=== PATIENT | female | born 1995 | race Caucasian/White ===

== ENCOUNTER 2017-03-26 06:35 | Emergency (ER) | payer OTHER ==
[~2017-03-26] VITALS: Ht 162.6 cm; Wt 99.8 kg
[~2017-03-26 06:35] MED LIST: ALBU0.0912 IH
[2017-03-26 06:59] VITALS: BP 107/74
--- NOTE | 2017-03-26 07:05 | NUR ---
TO ER BED 7
--- NOTE | 2017-03-26 07:15 | NUR ---
PATIENT PRESENTS TO ED WITH ABD PAIN, N/V AND DIARRHEA STARTED 0600HOURS . PT STATES PAIN IS CRAMPING ALL OVER ATHE ABDOMEN .SKIN IS PINK/WARM/DRY; AAOX4 WITH EVEN AND STEADY GAIT; LUNGS CLEAR BL; HR EVEN AND REGULAR; PT DENIES ANY FEVER, CP, SOB, OR COUGH AT THIS TIME; PATIENT STATES PAIN OF 10/10 AT THIS TIME;PATIENT POSITIONED FOR COMFORT; HOB ELEVATED; BEDRAILS UP X2; BED DOWN. ER MD WILL BE NOTIFIED.
--- NOTE | 2017-03-26 07:54 | NUR ---
GINO CANTU AT BEDSIDE.
[2017-03-26] MEDS ORDERED: HYDROmorphone 1 MG/ML AMP IVP ONE (08:05)
[2017-03-26] MEDS ORDERED: NACL 0.9% 1,000 ML IV ONE (08:05)
[2017-03-26] MEDS ORDERED: ONDANSETRON 4 MG/2 ML VIAL IVP ONE (08:05)
[2017-03-26 08:30] LABS: BASOPHILS # (AUTO) 0.2 K/uL (0.00-0.22); BASOPHILS % (AUTO) 2.1 % (0.0-2.0); EOSINOPHILS # (AUTO) 0.2 K/uL (0-0.4); EOSINOPHILS % (AUTO) 2.5 % (0.0-4.0); HEMATOCRIT 39.8 % (36-48); HEMOGLOBIN 12.9 g/dL (12.0-16.0); LYMPHOCYTES # (AUTO) 1.5 K/uL (2.5-16.5); LYMPHOCYTES % (AUTO) 15.8 % (20.5-51.1); MEAN CORPUSCULAR HEMOGLOBIN 26 pg (27-31); MEAN CORPUSCULAR HGB CONC 33 g/dL (33-37); MEAN CORPUSCULAR VOLUME 79 fL (80-94); MONOCYTES # (AUTO) 0.4 K/uL (0.8-1.0); MONOCYTES % (AUTO) 4.1 % (1.7-9.3); NEUTROPHILS # (AUTO) 7.3 K/uL (1.8-7.7); NEUTROPHILS % (AUTO) 75.5 % (42.2-75.2); PLATELET COUNT (AUTO) 251 K/uL (140-450); RED BLOOD CELL COUNT(AUTO) 5.05 MIL/uL (4.20-5.40); RED CELL DISTRIBUTION WIDTH 14.3 % (11.6-13.7); WHITE BLOOD COUNT (AUTO) 9.6 K/uL (4.8-10.8)
--- NOTE | 2017-03-26 08:35 | NUR ---
PT STATES SHE FEELS DIZZY;PROVIDED SAFETY MEASURES;COMFORT MEAUSRES DONE;
[2017-03-26 08:55] LABS: BILIRUBIN,URINE NEGATIVE (NEGATIVE); COLOR,URINE YELLOW (YELLOW); LEUKOCYTE ESTERASE ,URINE NEGATIVE (NEGATIVE); NITRITE, URINE NEGATIVE (NEGATIVE); PH,URINE 5.5 (5.0-9.0); PROTEIN,URINE 1+ (NEGATIVE); UGLUCOSE NEGATIVE (NEGATIVE); UROBILINOGEN,URINE 0.2 EU/dL (0.2 - 1)
[2017-03-26 08:59] LABS: ANION GAP 12.2 (8-16); CALCIUM 8.4 mg/dL (8.5-10.1); CARBON DIOXIDE 27.5 mmol/L (21-32); CREATININE 0.8 mg/dL (0.6-1.3); POTASSIUM 3.7 mmol/L (3.5-5.1)
--- NOTE | 2017-03-26 08:59 | NUR ---
PT VERBALIZES DECREASE OF PAIN FROM 9/10 TO 0/10.NO MOANING/RUBBING OF ABDOMEN NOTED;NO ACUTE DISTRESS NOTED;WILL CONTINUE TO MONITOR PT.
[2017-03-26 09:05] LABS: ALBUMIN 3.5 g/dL (3.4-5.0); TOTAL BILIRUBIN 0.2 mg/dL (0.0-1.0); TOTAL PROTEIN, SERUM 7.9 g/dL (6.4-8.2)
[2017-03-26 09:10] LABS: BACTERIA,URINE OCCASSIONAL /HPF (None Seen); WBC,URINE 0-2 /HPF (0-5)
[2017-03-26 09:11] LABS: MUCUS,URINE 1+ /LPF (None Seen); SQUAMOUS EPITHELIAL CELL,UR 0-3 (FEW) /LPF (0-3 (FEW))
[2017-03-26 09:12] LABS: APPEARANCE,URINE SLIGHTLY HAZY (CLEAR)
[2017-03-26 09:14] LABS: BLOOD, URINE 1+ (NEGATIVE)
--- NOTE | 2017-03-26 09:39 | NUR ---
PT RESTING ON BED; AT BEDSIDE;NO ACUTE DISTRESS OTED;WILL CONTINUE TO MONITOR PT.
--- NOTE | 2017-03-26 11:12 | NUR ---
PT RESTING ON BED;TALKING W/ HER ;NO ACUTE DISTRESS NOTED;ALL MONITORS IN PLACED;WILL CONTINUE TO MONITOR PT.
[2017-03-26 11:49] VITALS: BP 108/67
--- NOTE | 2017-03-26 11:49 | NUR ---
Patient discharged with v/s stable. Written and verbal after care instructions given and explained. Patient alert, oriented and verbalized understanding of instructions. with steady gait. All questions addressed prior to discharge. ID band removed. Patient advised to follow up with PMD. Rx of ZOFRAN given. Patient educated on indication of medication including possible reaction and side effects. Opportunity to ask questions provided and answered.
== END 2017-03-26 11:49 | disposition home or self-care (01) ==
LOC: MED 06:35
DX: B34.9 Viral infection, unspecified (principal); F17.210 Nicotine dependence, cigarettes, uncomplicated
CPT/HCPCS: 36415; 80053; 81001; 85025; 96361; 96374; 96375; 99284; J1170; J2405; J7030

== ENCOUNTER 2017-05-13 00:45 | Emergency (ER) | payer OTHER ==
[~2017-05-13] VITALS: Ht 165.1 cm; Wt 99.8 kg
[2017-05-13 01:01] VITALS: BP 103/58
--- NOTE | 2017-05-13 01:18 | NUR ---
TO ER BED 5
--- NOTE | 2017-05-13 01:20 | NUR ---
22Y/F PATIENT PRESENTS TO ED WITH C/O DIZZINESS X 1 DAY . PT STATES DIZZINESS WITH FEELING NOXIOUS. DENIES N/V/D; SKIN IS PINK/WARM/DRY; AAOX4 WITH EVEN AND STEADY GAIT; LUNGS CLEAR BL; HR EVEN AND REGULAR; PT DENIES ANY FEVER, CP, SOB, OR COUGH AT THIS TIME; PATIENT STATES PAIN OF 6/10 AT THIS TIME; VSS; PATIENT POSITIONED FOR COMFORT; HOB ELEVATED; BEDRAILS UP X2; BED DOWN. ER MD MADE AWARE OF PT STATUS.
[2017-05-13] MEDS ORDERED: LORazepam 1 MG TAB PO ONE (01:45)
[2017-05-13] MEDS ORDERED: KETOROLAC 60 MG/2 ML VIAL IM ONE (01:50)
[2017-05-13 02:43] VITALS: BP 126/80
--- NOTE | 2017-05-13 02:43 | NUR ---
Patient discharged with v/s stable. Written and verbal after care instructions given and explained. Patient alert, oriented and verbalized understanding of instructions. Ambulatory with steady gait. All questions addressed prior to discharge. ID band removed. Patient advised to follow up with PMD. Rx of FIORICET 50/325/40MG given. Patient educated on indication of medication including possible reaction and side effects. Opportunity to ask questions provided and answered.
== END 2017-05-13 02:43 | disposition home or self-care (01) ==
LOC: MED 00:45
DX: G44.209 Tension-type headache, unspecified, not intractable (principal); F41.9 Anxiety disorder, unspecified; J45.909 Unspecified asthma, uncomplicated
CPT/HCPCS: 81002; 81025; 99283; J1885

== ENCOUNTER 2018-03-01 15:59 | Emergency (ER) | payer OTHER ==
[~2018-03-01] VITALS: Ht 165.1 cm; Wt 101.2 kg
[2018-03-01 16:14] VITALS: BP 118/78
--- NOTE | 2018-03-01 16:20 | NUR ---
PT AMBULATED TO BED 1
--- NOTE | 2018-03-01 16:30 | NUR ---
23f bib self with c/o cough fever and sinus pressure x 5 days progressively getting worse. Patient is aox4. gcs=15. Clear speech. RR are even and unlabored. Awaiting er md ortiz. Will continue to monitor.
--- NOTE | 2018-03-01 16:54 | NUR ---
Patient discharged with v/s stable. Written and verbal after care instructions given and explained. Patient alert, oriented and verbalized understanding of instructions. Ambulatory with steady gait. All questions addressed prior to discharge. ID band removed. Patient advised to follow up with PMD. Rx of MOTRIN 800MG AND PROMETHAZINE/DM COUGH SYRUP given. Patient educated on indication of medication including possible reaction and side effects. Opportunity to ask questions provided and answered.
[2018-03-01 16:55] VITALS: BP 121/72
== END 2018-03-01 16:54 | disposition home or self-care (01) ==
LOC: MED 15:59
DX: J32.9 Chronic sinusitis, unspecified (principal); J45.909 Unspecified asthma, uncomplicated
CPT/HCPCS: 99283

== ENCOUNTER 2019-03-14 21:18 | Emergency (ER) | payer OTHER ==
[~2019-03-14] VITALS: Ht 165.1 cm; Wt 102.1 kg
[2019-03-14 21:32] VITALS: BP 136/81
--- NOTE | 2019-03-14 21:40 | NUR ---
PT AMBULATED TO THE RESTROOM AND THEN TO [facility]. PT GAVE U/A SPECIMEN
[2019-03-14 22:43] LABS: BASOPHILS % (AUTO) 0.4 % (0.0-2.0); EOSINOPHILS # (AUTO) 0.2 K/uL (0-0.4); EOSINOPHILS % (AUTO) 1.7 % (0.0-4.0); HEMOGLOBIN 11.5 g/dL (12.0-16.0); LYMPHOCYTES # (AUTO) 1.9 K/uL (2.5-16.5); LYMPHOCYTES % (AUTO) 18.5 % (20.5-51.1); MEAN CORPUSCULAR HEMOGLOBIN 26 pg (27-31); MEAN CORPUSCULAR HGB CONC 32 g/dL (33-37); MEAN CORPUSCULAR VOLUME 79.6 fL (80-94); MONOCYTES # (AUTO) 0.4 K/uL (0.8-1.0); MONOCYTES % (AUTO) 4.1 % (1.7-9.3); NEUTROPHILS # (AUTO) 7.9 K/uL (1.8-7.7); NEUTROPHILS % (AUTO) 75.3 % (42.2-75.2); PLATELET COUNT (AUTO) 259 K/uL (140-450); RED BLOOD CELL COUNT(AUTO) 4.52 MIL/uL (4.20-5.40); RED CELL DISTRIBUTION WIDTH 15.4 % (11.6-13.7); WHITE BLOOD COUNT (AUTO) 10.5 K/uL (4.8-10.8)
[2019-03-14 23:04] LABS: CARBON DIOXIDE 28.9 mmol/L (21-32); CREATININE 0.8 mg/dL (0.6-1.3); POTASSIUM 3.9 mmol/L (3.5-5.1)
[2019-03-14 23:10] LABS: ALBUMIN 3.8 g/dL (3.4-5.0); TOTAL BILIRUBIN 0.2 mg/dL (0.0-1.0)
--- NOTE | 2019-03-14 23:28 | NUR ---
PT TAKEN TO BED 8.
[2019-03-15 01:30] VITALS: BP 125/76
--- NOTE | 2019-03-15 01:30 | NUR ---
Patient discharged with v/s stable. Written and verbal after care instructions given and explained. Patient alert, oriented and verbalized understanding of instructions. Ambulatory with steady gait. All questions addressed prior to discharge. ID band removed. Patient advised to follow up with PMD. Rx of ZOFRAN AND MOTRIN WAS given. Patient educated on indication of medication including possible reaction and side effects. Opportunity to ask questions provided and answered.
== END 2019-03-15 01:30 | disposition home or self-care (01) ==
LOC: MED 21:18
DX: R10.13 Epigastric pain (principal); R11.0 Nausea; R19.7 Diarrhea, unspecified; J45.909 Unspecified asthma, uncomplicated; Z79.899 Other long term (current) drug therapy
CPT/HCPCS: 36415; 80053; 81002; 81025; 83690; 85025; 99283

== ENCOUNTER 2019-12-09 11:02 | Emergency (ER) | payer OTHER ==
[~2019-12-09] VITALS: Ht 165.1 cm; Wt 99.8 kg
[2019-12-09 11:12] VITALS: BP 121/58
--- NOTE | 2019-12-09 11:18 | NUR ---
24 Y/O F C/C COUGH X1 MONTH. PER PT TAKEN OTC RX FOR COUGH WITH NO RELIEF. PT PAIN 7/10 WHEN COUGHING; NO PAIN WHEN NOT COUGHING. LUNG SOUNDS CLEAR. PT NKA. HX ASTHMA. RX ALBUTEROL PRN. NO N/V/D. FLU SHOT UP TO DATE/NO FAMILY SICK AT HOME. SIDE RAIL X1.
--- NOTE | 2019-12-09 13:32 | NUR ---
PT RESTING IN BED , SIDE RAIL X1.
[2019-12-09 13:37] VITALS: BP 120/62
--- NOTE | 2019-12-09 13:37 | NUR ---
Patient discharged with v/s stable. Written and verbal after care instructions given and explained. Patient alert, oriented and verbalized understanding of instructions. Ambulatory with steady gait. All questions addressed prior to discharge. ID band removed. Patient advised to follow up with PMD. Rx of CODEINE PHOSPHATE/PROMETHAZINE,ALBUTEROL,PREDNISONE given. Patient educated on indication of medication including possible reaction and side effects. Opportunity to ask questions provided and answered.
== END 2019-12-09 13:37 | disposition home or self-care (01) ==
LOC: MED 11:02
DX: R05 Cough (principal); R50.9 Fever, unspecified; J45.909 Unspecified asthma, uncomplicated; Z79.899 Other long term (current) drug therapy
CPT/HCPCS: 71045; 99283; Q0092

== ENCOUNTER 2021-07-04 01:14 | Emergency (ER) | payer OTHER ==
[~2021-07-04] VITALS: Ht 162.6 cm; Wt 105.2 kg
[2021-07-04 01:30] VITALS: BP 138/78
--- NOTE | 2021-07-04 01:37 | NUR ---
PT AMBULATED TO LOBBY TO A/W BED
[2021-07-04] MEDS ORDERED: ONDANSETRON 4 MG ODT PO ONE (02:00)
[2021-07-04] MEDS ORDERED: DICYCLOMINE HCL LIQUID 20 MG, ALUMINUM HYD/MAG/SIMETHICONE 30 ML, LIDOCAINE VISCOUS 2% ... PO ONE ×3 (02:00)
[2021-07-04] MEDS ORDERED: ACETAMINOPHEN 325 MG TAB PO ONE (02:00)
[2021-07-04 02:19] LABS: BASOPHILS % (AUTO) 0.2 % (0.0-2.0); EOSINOPHILS # (AUTO) 0.3 K/uL (0-0.4); EOSINOPHILS % (AUTO) 2.3 % (0.0-4.0); HEMATOCRIT 34.3 % (36-48); LYMPHOCYTES # (AUTO) 1.5 K/uL (2.5-16.5); LYMPHOCYTES % (AUTO) 12.9 % (20.5-51.1); MEAN CORPUSCULAR HEMOGLOBIN 26 pg (27-31); MEAN CORPUSCULAR HGB CONC 32 g/dL (33-37); MEAN CORPUSCULAR VOLUME 80.8 fL (80-94); MONOCYTES # (AUTO) 0.6 K/uL (0.8-1.0); MONOCYTES % (AUTO) 4.9 % (1.7-9.3); NEUTROPHILS # (AUTO) 9.5 K/uL (1.8-7.7); NEUTROPHILS % (AUTO) 79.7 % (42.2-75.2); PLATELET COUNT (AUTO) 274 K/uL (140-450); RED BLOOD CELL COUNT(AUTO) 4.25 MIL/uL (4.20-5.40); RED CELL DISTRIBUTION WIDTH 15.2 % (11.6-13.7); WHITE BLOOD COUNT (AUTO) 11.9 K/uL (4.8-10.8)
[2021-07-04 02:39] LABS: ALBUMIN 3.8 g/dL (3.4-5.0); ANION GAP 11.7 (8-16); CARBON DIOXIDE 26.9 mmol/L (21-32); CREATININE 0.9 mg/dL (0.6-1.3); POTASSIUM 3.6 mmol/L (3.5-5.1); TOTAL BILIRUBIN 0.3 mg/dL (0.0-1.0)
[2021-07-04] MEDS ORDERED: ALUMINUM HYD/MAG/SIMETHICONE 30 ML UDC ONE (02:53)
[2021-07-04] MEDS ORDERED: DICYCLOMINE HCL LIQUID 10 MG/5 ML UDC ONE (02:53)
[2021-07-04] MEDS ORDERED: ONDA-24 SL (03:57)
[2021-07-04] MEDS ORDERED: MAG-27 PO (03:57)
[2021-07-04] MEDS ORDERED: FAMO-92 PO (03:57)
--- NOTE | 2021-07-04 04:16 | NUR ---
Patient discharged with v/s stable. Written and verbal after care instructions given and explained. Patient alert, oriented and verbalized understanding of instructions. Ambulatory with steady gait. All questions addressed prior to discharge. ID band removed. Patient advised to follow up with PMD. Rx of PEPCID, ZOFRAN, AND [place]A given. Patient educated on indication of medication including possible reaction and side effects. Opportunity to ask questions provided and answered.
== END 2021-07-04 04:16 | disposition home or self-care (01) ==
LOC: MED 01:14
DX: K29.70 Gastritis, unspecified, without bleeding (principal); J45.909 Unspecified asthma, uncomplicated; Z79.899 Other long term (current) drug therapy
CPT/HCPCS: 36415; 80053; 83690; 85025; 99284; Q0162

== ENCOUNTER 2021-07-15 13:40 | Emergency (ER) | payer OTHER ==
[~2021-07-15] VITALS: Ht 165.1 cm; Wt 103.0 kg
[~2021-07-15 13:40] MED LIST changes: +FAMO-92 PO; +MAG-27 PO; +ONDA-24 SL
[2021-07-15 14:12] VITALS: BP 137/82
[2021-07-15 15:18] LABS: BASOPHILS % (AUTO) 0.5 % (0.0-2.0); EOSINOPHILS # (AUTO) 0.3 K/uL (0-0.4); EOSINOPHILS % (AUTO) 3.6 % (0.0-4.0); HEMATOCRIT 35.5 % (36-48); HEMOGLOBIN 11.4 g/dL (12.0-16.0); LYMPHOCYTES % (AUTO) 23.5 % (20.5-51.1); MEAN CORPUSCULAR HEMOGLOBIN 26 pg (27-31); MEAN CORPUSCULAR HGB CONC 32 g/dL (33-37); MEAN CORPUSCULAR VOLUME 81.7 fL (80-94); MONOCYTES # (AUTO) 0.4 K/uL (0.8-1.0); MONOCYTES % (AUTO) 4.4 % (1.7-9.3); NEUTROPHILS # (AUTO) 5.7 K/uL (1.8-7.7); PLATELET COUNT (AUTO) 255 K/uL (140-450); RED BLOOD CELL COUNT(AUTO) 4.34 MIL/uL (4.20-5.40); RED CELL DISTRIBUTION WIDTH 14.9 % (11.6-13.7); WHITE BLOOD COUNT (AUTO) 8.3 K/uL (4.8-10.8)
[2021-07-15 15:53] LABS: ALBUMIN 3.8 g/dL (3.4-5.0); ANION GAP 9.7 (8-16); CARBON DIOXIDE 31.3 mmol/L (21-32); CREATININE 0.8 mg/dL (0.6-1.3); TOTAL BILIRUBIN 0.2 mg/dL (0.0-1.0)
[2021-07-15] MEDS ORDERED: CETI10SG1 PO (16:35)
[2021-07-15 16:45] VITALS: BP 137/82
--- NOTE | 2021-07-15 16:45 | NUR ---
Patient discharged with v/s stable. Written and verbal after care instructions given and explained. Patient alert, oriented and verbalized understanding of instructions. Ambulatory with steady gait. All questions addressed prior to discharge. ID band removed. Patient advised to follow up with PMD. Rx of CETIRIZINE given. Patient educated on indication of medication including possible reaction and side effects. Opportunity to ask questions provided and answered.
--- NOTE | 2021-07-15 16:45 | NUR ---
NO NURSING INTERVENTIONS IMPLEMENTED
== END 2021-07-15 16:45 | disposition home or self-care (01) ==
LOC: MED 13:40
DX: T78.40XA Allergy, unspecified, initial encounter (principal); J45.909 Unspecified asthma, uncomplicated; Z79.899 Other long term (current) drug therapy; X58.XXXA Exposure to other specified factors, initial encounter
CPT/HCPCS: 36415; 80053; 81002; 81025; 85025; 99283

== ENCOUNTER 2021-08-29 19:07 | Emergency (ER) | payer OTHER ==
[~2021-08-29] VITALS: Ht 162.6 cm; Wt 103.4 kg
[~2021-08-29 19:07] MED LIST changes: +CETI10SG1 PO; +ONDA-188 SL; -ONDA-24 SL
[2021-08-29 19:21] VITALS: BP 119/76
[2021-08-29] MEDS ORDERED: CYCLOBENZAPRINE 10 MG TAB PO ONE (20:15)
[2021-08-29] MEDS ORDERED: KETOROLAC 30 MG/ML VIAL IM ONE (20:15)
[2021-08-29] MEDS ORDERED: IBUP-2218 PO (21:01)
[2021-08-29] MEDS ORDERED: CYCL-711 PO (21:01)
--- NOTE | 2021-08-29 21:30 | NUR ---
SEE COMPLETE ASSESSMENT FOR FURTHER DETAIL.
[2021-08-29] MEDS ORDERED: KETOROLAC 30 MG/ML VIAL ONE (21:32)
[2021-08-29] MEDS ORDERED: CYCLOBENZAPRINE 10 MG TAB ONE (21:32)
--- NOTE | 2021-08-29 21:40 | NUR ---
Patient discharged with v/s stable. Written and verbal after care instructions given and explained. Patient alert, oriented and verbalized understanding of instructions. Ambulatory with steady gait. All questions addressed prior to discharge. ID band removed. Patient advised to follow up with PMD. Rx of FLEXERIL AND MOTRIN given. Patient educated on indication of medication including possible reaction and side effects. Opportunity to ask questions provided and answered.
== END 2021-08-29 21:40 | disposition home or self-care (01) ==
LOC: MED 19:07
DX: M54.6 Pain in thoracic spine (principal); M79.18 Myalgia, other site; J45.909 Unspecified asthma, uncomplicated; Z79.899 Other long term (current) drug therapy; Z79.51 Long term (current) use of inhaled steroids
CPT/HCPCS: 71045; 99283; J1885

== ENCOUNTER 2021-10-03 07:40 | Emergency (ER) | payer OTHER ==
[~2021-10-03] VITALS: Ht 165.1 cm; Wt 99.8 kg
[~2021-10-03 07:40] MED LIST changes: +CYCL-711 PO; +IBUP-2218 PO
[2021-10-03 07:48] VITALS: BP 136/84
--- NOTE | 2021-10-03 07:55 | NUR ---
AMBULATED TO ER BED 7
--- NOTE | 2021-10-03 08:07 | NUR ---
26 Y/O F C/O LOWER/MID BACK PAIN 04/30, FREQUENT URINATION ADN CHILLS STARTED YESTERDAY. DENIES INJURY OR TRAUMA. BACK PAIN RADIATES TO HER L MID SIDE. NKA PMH: LUPUS
--- NOTE | 2021-10-03 08:11 | NUR ---
URINE COLLECTED AND TAKEN TO THE LAB.
[2021-10-03 08:32] LABS: APPEARANCE,URINE CLEAR (CLEAR); BILIRUBIN,URINE NEGATIVE (NEGATIVE); BLOOD, URINE NEGATIVE (NEGATIVE); COLOR,URINE YELLOW (YELLOW); LEUKOCYTE ESTERASE ,URINE NEGATIVE (NEGATIVE); NITRITE, URINE NEGATIVE (NEGATIVE); UGLUCOSE NEGATIVE (NEGATIVE)
[2021-10-03] MEDS ORDERED: IBUP-2809 PO (08:55)
[2021-10-03] MEDS ORDERED: LID5T TP (08:55)
--- NOTE | 2021-10-03 09:09 | NUR ---
Patient discharged with v/s stable. Written and verbal after care instructions given and explained. Patient alert, oriented and verbalized understanding of instructions. Ambulatory with steady gait. All questions addressed prior to discharge. ID band removed. Patient advised to follow up with PMD. Rx of IBUPROFEN, LIDOCAINE HYD given. Opportunity to ask questions provided and answered.
--- NOTE | 2021-10-03 09:11 | NUR ---
Chart checked and completed. The patient's care was reviewed and supervised by Sierra Ham RN.
== END 2021-10-03 09:08 | disposition home or self-care (01) ==
LOC: MED 07:40
DX: M54.50 Low back pain, unspecified (principal); R35.0 Frequency of micturition; J45.909 Unspecified asthma, uncomplicated; Z79.899 Other long term (current) drug therapy
CPT/HCPCS: 81003; 81025; 99283

== ENCOUNTER 2022-02-24 11:08 | Emergency (ER) | payer OTHER ==
[~2022-02-24] VITALS: Ht 162.6 cm; Wt 96.7 kg
[~2022-02-24 11:08] MED LIST changes: +IBUP-2809 PO; +LID5T TP
[2022-02-24 11:11] VITALS: BP 113/68
[2022-02-24] MEDS ORDERED: NACL 0.9% 1,000 ML IV ONE (11:30)
[2022-02-24] MEDS ORDERED: ONDANSETRON 4 MG/2 ML VIAL ONE (11:30)
[2022-02-24] MEDS ORDERED: ONDANSETRON 4 MG/2 ML VIAL IVP ONE (11:30)
--- NOTE | 2022-02-24 11:39 | NUR ---
bloodwork collected and walked to lab
--- NOTE | 2022-02-24 11:40 | NUR ---
US AT PT BEDSIDE
[2022-02-24 11:46] LABS: BASOPHILS % (AUTO) 0.5 % (0.0-2.0); EOSINOPHILS # (AUTO) 0.3 K/uL (0-0.4); EOSINOPHILS % (AUTO) 4.1 % (0.0-4.0); HEMATOCRIT 34.7 % (36-48); HEMOGLOBIN 11.2 g/dL (12.0-16.0); LYMPHOCYTES # (AUTO) 1.2 K/uL (2.5-16.5); LYMPHOCYTES % (AUTO) 15.5 % (20.5-51.1); MEAN CORPUSCULAR HEMOGLOBIN 26 pg (27-31); MEAN CORPUSCULAR HGB CONC 32 g/dL (33-37); MEAN CORPUSCULAR VOLUME 81.6 fL (80-94); MONOCYTES # (AUTO) 0.4 K/uL (0.8-1.0); MONOCYTES % (AUTO) 5.9 % (1.7-9.3); NEUTROPHILS # (AUTO) 5.5 K/uL (1.8-7.7); PLATELET COUNT (AUTO) 232 K/uL (140-450); RED BLOOD CELL COUNT(AUTO) 4.25 MIL/uL (4.20-5.40); RED CELL DISTRIBUTION WIDTH 15.9 % (11.6-13.7); WHITE BLOOD COUNT (AUTO) 7.5 K/uL (4.8-10.8)
[2022-02-24 12:29] LABS: ALBUMIN 3.5 g/dL (3.4-5.0); ANION GAP 10.9 (8-16); CARBON DIOXIDE 27.4 mmol/L (21-32); CREATININE 0.7 mg/dL (0.6-1.3); POTASSIUM 4.3 mmol/L (3.5-5.1); TOTAL BILIRUBIN 0.6 mg/dL (0.0-1.0)
[2022-02-24] MEDS ORDERED: DOXY1TCP PO (12:46)
--- NOTE | 2022-02-24 13:58 | NUR ---
Patient discharged with v/s stable. Written and verbal after care instructions given. Patient alert, oriented and verbalized understanding of instructions. Ambulatory with to car. All questions addressed prior to discharge. ID band removed. Patient advised to follow up with PMD. Rx of DOXYLAMINE/PYRIDOXINE given. Opportunity to ask questions provided and answered.
--- NOTE | 2022-02-24 13:59 | NUR ---
The patient's care was reviewed and supervised by Jackie Campos RN.
[2022-02-24 15:42] LABS: APPEARANCE,URINE CLEAR (CLEAR); BILIRUBIN,URINE NEGATIVE (NEGATIVE); BLOOD, URINE NEGATIVE (NEGATIVE); COLOR,URINE YELLOW (YELLOW); LEUKOCYTE ESTERASE ,URINE NEGATIVE (NEGATIVE); NITRITE, URINE NEGATIVE (NEGATIVE); PH,URINE 6.5 (5.0-9.0); UGLUCOSE NEGATIVE (NEGATIVE)
== END 2022-02-24 13:58 | disposition home or self-care (01) ==
LOC: MED 11:08
DX: O21.0 Mild hyperemesis gravidarum (principal); O26.891 Other specified pregnancy related conditions, first trimester; R10.9 Unspecified abdominal pain; R42 Dizziness and giddiness; Z3A.01 Less than 8 weeks gestation of pregnancy; Z79.899 Other long term (current) drug therapy
CPT/HCPCS: 36415; 76817; 80053; 81003; 81025; 84702; 85025; 96361; 96374; 99284; J2405; J7030; Q0092

== ENCOUNTER 2022-07-20 05:45 | Emergency (ER) | payer OTHER ==
[~2022-07-20] VITALS: Ht 162.6 cm; Wt 100.2 kg
[~2022-07-20 05:45] MED LIST changes: +DOXY1TCP PO
[2022-07-20 05:54] VITALS: BP 103/65
--- NOTE | 2022-07-20 05:57 | NUR ---
PT TO LOBBY.
[2022-07-20] MEDS ORDERED: LIDOCAINE 5% 1 EA PATCH TP STA (06:12)
[2022-07-20] MEDS ORDERED: methocarbamoL 500 MG TAB PO STA (06:12)
[2022-07-20] MEDS ORDERED: KETOROLAC 15 MG/ML VIAL IM ONE (06:15)
--- NOTE | 2022-07-20 06:18 | NUR ---
PATIENT AMBULATED TO RR
[2022-07-20 06:21] VITALS: BP 103/65
[2022-07-20] MEDS ORDERED: IBUP-2213 PO (06:28)
[2022-07-20] MEDS ORDERED: LID5T TP (06:28)
--- NOTE | 2022-07-20 06:50 | NUR ---
Patient discharged with v/s stable. Written and verbal after care instructions given and explained. Patient alert, oriented and verbalized understanding of instructions. Ambulatory with steady gait. All questions addressed prior to discharge. ID band removed. Patient advised to follow up with PMD. Rx of IBUPROFEN AND LIDOCAINE PATCH given.
== END 2022-07-20 06:50 | disposition home or self-care (01) ==
LOC: MED 05:45
DX: S29.012A Strain of muscle and tendon of back wall of thorax, initial encounter (principal); J45.909 Unspecified asthma, uncomplicated; Z79.899 Other long term (current) drug therapy; X58.XXXA Exposure to other specified factors, initial encounter; Y93.89 Activity, other specified; Y92.89 Other specified places as the place of occurrence of the external cause; Y99.8 Other external cause status
CPT/HCPCS: 81002; 81025; 96372; 99283; J1885

== ENCOUNTER 2022-10-22 08:50 | Emergency (ER) | payer OTHER ==
[~2022-10-22] VITALS: Ht 165.1 cm; Wt 99.8 kg
[~2022-10-22 08:50] MED LIST changes: +IBUP-2213 PO
[2022-10-22 08:56] VITALS: BP 113/77
[2022-10-22] MEDS ORDERED: diphenhydrAMINE 50 MG/ML VIAL IVP ONE (09:00)
[2022-10-22] MEDS ORDERED: ONDANSETRON 4 MG/2 ML VIAL IVP ONE (09:00)
[2022-10-22] MEDS ORDERED: KETOROLAC 30 MG/ML VIAL IVP ONE (09:00)
[2022-10-22] MEDS ORDERED: NACL 0.9% 1,000 ML IV ONE (09:00)
--- NOTE | 2022-10-22 09:00 | NUR ---
DR IZQUIERDO AT BEDSIDE FOR EVAL
--- NOTE | 2022-10-22 09:30 | NUR ---
27 Y/O FEMALE BIB SELF C/O NVX6 EPISODES AND DIARRHEA X2 EPISODES, CHEST PRESSURE AND EPIGASTRIC PAIN X1DAY. DENIES ANY DRUG/ALCOHOL INTAKE, DENIES ANY MEDICATION PRIOR TO ARRIVAL, DENIES ANY SICK CONTACTS. ACTIVELY VOMITING AT BEDSIDE, GIVEN EMESIS BAG, NO BLOOD NOTED IN VOMITUS, SCANT WITH NO SOLIDS NOTED. DENIES ANY BLOOD IN STOOL. DENIES ANY SOB, COUGH. IN BED ON INSPECTION CLERK. CHANGED INTO A GOWN AND HOB ELEVATED. NKA PMH: ASTHMA, LUPUS
--- NOTE | 2022-10-22 09:38 | NUR ---
Note katey in EDM - 10/22/22 at 0943 by LIGIA Patient discharged with v/s stable. Written and verbal after care instructions given. Patient alert, oriented and verbalized understanding of instructions. Ambulatory with steady gait. All questions addressed prior to discharge. ID band removed. Patient advised to follow up with PMD. Rx of Albuerol, Ibuprofen, Inhaler and Mucinex given. Opportunity to ask questions provided and answered.
[2022-10-22 09:46] LABS: BASOPHILS # (AUTO) 0.1 K/uL (0.00-0.22); BASOPHILS % (AUTO) 0.5 % (0.0-2.0); EOSINOPHILS # (AUTO) 0.1 K/uL (0-0.4); EOSINOPHILS % (AUTO) 0.5 % (0.0-4.0); HEMATOCRIT 35.8 % (36-48); HEMOGLOBIN 11.4 g/dL (12.0-16.0); LYMPHOCYTES # (AUTO) 1.9 K/uL (2.5-16.5); LYMPHOCYTES % (AUTO) 10.9 % (20.5-51.1); MEAN CORPUSCULAR HEMOGLOBIN 25 pg (27-31); MEAN CORPUSCULAR HGB CONC 32 g/dL (33-37); MEAN CORPUSCULAR VOLUME 79.5 fL (80-94); MONOCYTES # (AUTO) 0.6 K/uL (0.8-1.0); MONOCYTES % (AUTO) 3.4 % (1.7-9.3); NEUTROPHILS # (AUTO) 14.7 K/uL (1.8-7.7); NEUTROPHILS % (AUTO) 84.7 % (42.2-75.2); PLATELET COUNT (AUTO) 295 K/uL (140-450); WHITE BLOOD COUNT (AUTO) 17.4 K/uL (4.8-10.8)
[2022-10-22 09:52] LABS: ALBUMIN 3.6 g/dL (3.4-5.0); ANION GAP 13.6 (8-16); CARBON DIOXIDE 24.5 mmol/L (21-32); CREATININE 0.7 mg/dL (0.6-1.3); POTASSIUM 4.1 mmol/L (3.5-5.1); TOTAL BILIRUBIN 0.4 mg/dL (0.0-1.0)
[2022-10-22] MEDS ORDERED: FAMO-92 PO (10:08)
[2022-10-22] MEDS ORDERED: SIME125T38 PO (10:08)
[2022-10-22] MEDS ORDERED: ONDA-188 PO (10:08)
[2022-10-22 11:17] VITALS: BP 118/64
--- NOTE | 2022-10-22 11:18 | NUR ---
Patient discharged with v/s stable. Written and verbal after care instructions ABOUT VIRAL GASTROENETERITIS given and explained. Patient alert, oriented and verbalized understanding of instructions. Ambulatory with steady gait. All questions addressed prior to discharge. ID band removed. Patient advised to follow up with PMD. Rx of ZOFRAN, SIMETHICONE AND PEPCID given. Patient educated on indication of medication including possible reaction and side effects. Opportunity to ask questions provided and answered.
== END 2022-10-22 11:18 | disposition home or self-care (01) ==
LOC: MED 08:50
DX: A08.4 Viral intestinal infection, unspecified (principal); J45.909 Unspecified asthma, uncomplicated
CPT/HCPCS: 36415; 80053; 83690; 85025; 96361; 96374; 96375; 99284; J1200; J1885; J2405

== ENCOUNTER 2023-01-05 08:35 | Emergency (ER) | payer OTHER ==
[~2023-01-05] VITALS: Ht 162.6 cm; Wt 103.4 kg
[~2023-01-05 08:35] MED LIST changes: +ONDA-188 PO; +SIME125T38 PO
[2023-01-05 08:41] VITALS: BP 111/60
--- NOTE | 2023-01-05 09:25 | NUR ---
PT AMB TO BED 11
[2023-01-05] MEDS ORDERED: ONDANSETRON 4 MG ODT PO ONE (09:30)
[2023-01-05] MEDS ORDERED: KETOROLAC 60 MG/2 ML VIAL IM ONE (09:40)
[2023-01-05] MEDS ORDERED: IBUP-2213 PO (09:59)
[2023-01-05] MEDS ORDERED: ONDA8TAB87 PO (09:59)
--- NOTE | 2023-01-05 10:10 | NUR ---
Patient discharged with v/s stable. Written and verbal after care instructions given and explained. Patient alert, oriented and verbalized understanding of instructions. Ambulatory with steady gait. All questions addressed prior to discharge. ID band removed. Patient advised to follow up with PMD. Rx of zofran and ibuprofen given. Patient educated on indication of medication including possible reaction and side effects. Opportunity to ask questions provided and answered.
== END 2023-01-05 10:10 | disposition home or self-care (01) ==
LOC: MED 08:35
DX: R10.13 Epigastric pain (principal); R19.7 Diarrhea, unspecified; R11.0 Nausea; J45.909 Unspecified asthma, uncomplicated; Z79.899 Other long term (current) drug therapy
CPT/HCPCS: 81025; 96372; 99283; J1885; Q0162

== ENCOUNTER 2023-03-28 23:45 | Emergency (ER) | payer OTHER ==
[~2023-03-28] VITALS: Ht 162.6 cm; Wt 102.1 kg
[2023-03-28 23:45] VITALS: BP 127/91
[~2023-03-28 23:45] MED LIST changes: +ONDA8TAB87 PO
--- NOTE | 2023-03-28 23:48 | NUR ---
to lobby a/w bed ambulatory
[2023-03-29 00:35] LABS: APPEARANCE,URINE CLOUDY (CLEAR); BILIRUBIN,URINE 1+ (NEGATIVE); BLOOD, URINE 3+ (NEGATIVE); COLOR,URINE RED (YELLOW); LEUKOCYTE ESTERASE ,URINE NEGATIVE (NEGATIVE); NITRITE, URINE NEGATIVE (NEGATIVE); UGLUCOSE NEGATIVE (NEGATIVE)
[2023-03-29 00:39] LABS: RBC,URINE TOO NUMEROUS TO COUN /HPF (0-5)
[2023-03-29 01:40] LABS: BASOPHILS % (AUTO) 0.4 % (0.0-2.0); EOSINOPHILS # (AUTO) 0.4 K/uL (0-0.4); EOSINOPHILS % (AUTO) 5.7 % (0.0-4.0); HEMATOCRIT 33.1 % (36-48); HEMOGLOBIN 10.7 g/dL (12.0-16.0); LYMPHOCYTES % (AUTO) 25.4 % (20.5-51.1); MEAN CORPUSCULAR HEMOGLOBIN 25 pg (27-31); MEAN CORPUSCULAR HGB CONC 32 g/dL (33-37); MEAN CORPUSCULAR VOLUME 77.9 fL (80-94); MONOCYTES # (AUTO) 0.4 K/uL (0.8-1.0); MONOCYTES % (AUTO) 4.8 % (1.7-9.3); NEUTROPHILS % (AUTO) 63.7 % (42.2-75.2); PLATELET COUNT (AUTO) 266 K/uL (140-450); RED BLOOD CELL COUNT(AUTO) 4.25 MIL/uL (4.20-5.40); RED CELL DISTRIBUTION WIDTH 16.7 % (11.6-13.7); WHITE BLOOD COUNT (AUTO) 7.8 K/uL (4.8-10.8)
--- NOTE | 2023-03-29 01:59 | NUR ---
PT TO BED #3
--- NOTE | 2023-03-29 02:17 | NUR ---
BROUGHT FROM US TO BED 3. RECEIVED PT AT THIS TIME. PT HERE WITH C/O VAGINAL BLEEDING WITH LMP 02/11. AT BEDSIDE
[2023-03-29] MEDS ORDERED: ACETAMINOPHEN EXTRA STRENGTH 500 MG TAB PO ONE (03:00)
[2023-03-29] MEDS ORDERED: HYDROcodone/APAP 5/325 MG 1 TAB TAB ONE (06:03)
[2023-03-29] MEDS ORDERED: HYDROcodone/APAP 5/325 MG 1 TAB TAB PO ONE (06:05)
[2023-03-29] MEDS ORDERED: ACET-8905 PO (06:09)
[2023-03-29 06:20] VITALS: BP 127/91
--- NOTE | 2023-03-29 06:20 | NUR ---
Patient discharged with v/s stable. Written and verbal after care instructions given and explained. Patient alert, oriented and verbalized understanding of instructions. Ambulatory with steady gait. All questions addressed prior to discharge. ID band removed. Patient advised to follow up with PMD. Rx of HYDROCODONE given. Patient educated on indication of medication including possible reaction and side effects. Opportunity to ask questions provided and answered.
== END 2023-03-29 06:20 | disposition home or self-care (01) ==
LOC: MED 23:45
DX: O03.9 Complete or unspecified spontaneous abortion without complication (principal); L93.0 Discoid lupus erythematosus; J45.909 Unspecified asthma, uncomplicated; Z79.899 Other long term (current) drug therapy
CPT/HCPCS: 36415; 76817; 81001; 81025; 84702; 85025; 86900; 86901; 99284

== ENCOUNTER 2023-11-04 19:12 | Emergency (ER) | payer BC, OTHER ==
[~2023-11-04] VITALS: Ht 162.6 cm; Wt 106.8 kg
[~2023-11-04 19:12] MED LIST changes: +ACET-8905 PO
[2023-11-04 19:32] VITALS: BP 121/88; PULSE 127; RESP 24; TEMP 102; O2SAT 98
[2023-11-04] MEDS ORDERED: ACETAMINOPHEN EXTRA STRENGTH 500 MG TAB ONE (19:39)
[2023-11-04] MEDS: ACETAMINOPHEN EXTRA STRENGTH 500 MG TAB PO ONE (20:08)
[2023-11-04 20:22] LABS: FLU A ANTIGEN POSITIVE (NEGATIVE); FLU B ANTIGEN NEGATIVE (NEGATIVE)
[2023-11-04] MEDS: NACL 0.9% 1,000 ML IV ONE (20:48)
[2023-11-04] MEDS: ONDANSETRON 4 MG/2 ML VIAL IVP ONE (20:52)
[2023-11-04] MEDS: KETOROLAC 30 MG/ML VIAL IVP ONE (20:52)
[2023-11-04] MEDS ORDERED: ONDA-188 SL (21:28)
[2023-11-04] MEDS ORDERED: TAM75 PO (21:28)
[2023-11-04] MEDS ORDERED: IBUP-2213 PO (21:28)
[2023-11-04 22:15] VITALS: BP 109/65; PULSE 90; RESP 18; TEMP 99.3; O2SAT 96
== END 2023-11-04 22:47 | disposition home or self-care (01) ==
LOC: MED 19:12
DX: J10.1 Influenza due to other identified influenza virus with other respiratory manifestations (principal); E86.0 Dehydration; Z20.822 Contact with and (suspected) exposure to COVID-19; J45.909 Unspecified asthma, uncomplicated; Z79.899 Other long term (current) drug therapy; Z79.1 Long term (current) use of non-steroidal anti-inflammatories (NSAID)
CPT/HCPCS: 81002; 81025; 96361; 96374; 96375; 99284; J1885; J2405; J7030

== ENCOUNTER 2024-03-17 14:24 | Emergency (ER) | payer BC, OTHER ==
[~2024-03-17] VITALS: Ht 162.6 cm; Wt 102.1 kg
[~2024-03-17 14:24] MED LIST changes: +TAM75 PO
[2024-03-17 14:28] VITALS: PULSE 81; RESP 18; TEMP 97.1; O2SAT 98
[2024-03-17 15:24] LABS: BILIRUBIN,URINE NEGATIVE (NEGATIVE); BLOOD, URINE 3+ (NEGATIVE); COLOR,URINE YELLOW (YELLOW); LEUKOCYTE ESTERASE ,URINE 2+ (NEGATIVE); NITRITE, URINE NEGATIVE (NEGATIVE); PROTEIN,URINE 2+ (NEGATIVE); UGLUCOSE NEGATIVE (NEGATIVE); UROBILINOGEN,URINE 0.2 EU/dL (0.2 - 1)
[2024-03-17 15:29] LABS: APPEARANCE,URINE SLIGHTLY CLOUDY (CLEAR)
[2024-03-17 15:31] LABS: BACTERIA,URINE 2+ /HPF (None Seen); MUCUS,URINE None Seen /LPF (None Seen); RBC,URINE 11-20 (MOD) /HPF (0-5); SQUAMOUS EPITHELIAL CELL,UR 4-10 (MOD) /LPF (0-3 (FEW))
[2024-03-17 15:57] VITALS: O2SAT 98
[2024-03-17 16:59] LABS: BASOPHILS % (AUTO) 0.2 % (0.0-2.0); EOSINOPHILS # (AUTO) 0.4 K/uL (0-0.4); EOSINOPHILS % (AUTO) 4.1 % (0.0-4.0); HEMATOCRIT 30.5 % (36-48); HEMOGLOBIN 10.1 g/dL (12.0-16.0); LYMPHOCYTES # (AUTO) 1.4 K/uL (2.5-16.5); LYMPHOCYTES % (AUTO) 15.1 % (20.5-51.1); MEAN CORPUSCULAR HEMOGLOBIN 25 pg (27-31); MEAN CORPUSCULAR HGB CONC 33 g/dL (33-37); MEAN CORPUSCULAR VOLUME 75.7 fL (80-94); MONOCYTES # (AUTO) 0.4 K/uL (0.8-1.0); MONOCYTES % (AUTO) 4.3 % (1.7-9.3); NEUTROPHILS # (AUTO) 7.2 K/uL (1.8-7.7); NEUTROPHILS % (AUTO) 76.3 % (42.2-75.2); PLATELET COUNT (AUTO) 243 K/uL (140-450); RED BLOOD CELL COUNT(AUTO) 4.04 MIL/uL (4.20-5.40); RED CELL DISTRIBUTION WIDTH 16.4 % (11.6-13.7); WHITE BLOOD COUNT (AUTO) 9.4 K/uL (4.8-10.8)
[2024-03-17 17:13] LABS: ANION GAP 13.2 (8-16); CALCIUM 8.6 mg/dL (8.5-10.1); CARBON DIOXIDE 26.6 mmol/L (21-32); CREATININE 0.8 mg/dL (0.6-1.3); POTASSIUM 3.8 mmol/L (3.5-5.1)
[2024-03-17 17:20] LABS: ALBUMIN 3.5 g/dL (3.4-5.0); BILIRUBIN,DIRECT 0.1 mg/dL (0.0-0.3); TOTAL BILIRUBIN 0.3 mg/dL (0.0-1.0); TOTAL PROTEIN, SERUM 7.1 g/dL (6.4-8.2)
[2024-03-17 17:48] VITALS: O2SAT 98
[2024-03-17] MEDS ORDERED: CEPH-588 PO (17:59)
[2024-03-17 18:08] VITALS: BP 133/66; PULSE 78; RESP 18; TEMP 97.1; O2SAT 98
== END 2024-03-17 18:12 | disposition home or self-care (01) ==
LOC: MED 14:24
DX: N39.0 Urinary tract infection, site not specified (principal); J45.909 Unspecified asthma, uncomplicated; Z79.899 Other long term (current) drug therapy
CPT/HCPCS: 36415; 80048; 80076; 81001; 81025; 83690; 85025; 87086; 87186; 99285